=== PATIENT | female | born 1975 | race Caucasian/White ===

== ENCOUNTER → 2024-08-18 | Outpatient (REF) | payer BC ==
[~2024-08-18] MED LIST: B12 ACTIVE1000 MCG; BIOTIN1 MG; D3-5000125 MCG; DULCOLAX10 MG PR; LISINOPRIL20 MG PO; PEPCID20 MG PO; PROBIOTIC & AC1 EACH PO; STOOL SOFTENER50 MG; VITAMIN C1000 MG PO; ZINC
== END ==
LOC: DX 06:48
PROVIDERS: ATTEND Nurse Practitioner Family
DX: R10.13 Epigastric pain (principal); Z87.19 Personal history of other diseases of the digestive system
CPT/HCPCS: 74250

== ENCOUNTER → 2024-08-26 | Day surgery (SDC) | payer BC ==
[~2024-08-26] MED LIST changes: +HYOSCYAMINE SULFATE 0.5 MG/ML INJ ONE; +LIDOCAINE HCL 2% LOCAL INJ 5 ML SDV VIAL INJ ONE; +MIDAZOLAM HCL 2 MG/2 ML VIAL ONE; +PROPOFOL IV EMULSION 50 ML IV ONE
[2024-08-26] MEDS: LACTATED RINGER'S 1,000 ML ONE (09:15)
[2024-08-26 10:30] VITALS: TEMP 97.8
[2024-08-26 11:00] VITALS: BP 148/92; PULSE 82; RESP 16; O2SAT 97
== END | disposition home or self-care (01) ==
LOC: OR 08:56
PROVIDERS: ATTEND Internal Medicine Gastroenterology
DX: Z12.11 Encounter for screening for malignant neoplasm of colon (principal); K59.00 Constipation, unspecified; K21.9 Gastro-esophageal reflux disease without esophagitis; K64.8 Other hemorrhoids; Z98.84 Bariatric surgery status; Z87.19 Personal history of other diseases of the digestive system; I10 Essential (primary) hypertension; F41.9 Anxiety disorder, unspecified; Z88.1 Allergy status to other antibiotic agents; Z79.1 Long term (current) use of non-steroidal anti-inflammatories (NSAID); Z79.899 Other long term (current) drug therapy
CPT/HCPCS: 43239; 45378; J1980; J2003; J2250